=== PATIENT | male | born 1970 | race African-American/Black ===

== ENCOUNTER 2018-01-12 03:51 | Inpatient (IN) | payer SELFPAY ==
[~2018-01-12] VITALS: Ht 182.9 cm; Wt 61.4 kg
[~2018-01-12 03:51] MED LIST: ATRIPLA
[2018-01-12] MEDS ORDERED: FLUORESCEIN SODIUM 1MG/STRIP OP ONE (05:15)
[2018-01-12] MEDS ORDERED: TETRACAINE 0.5% OPHTH DROPS 4ML OP ONE (05:15)
[2018-01-12] MEDS ORDERED: SODIUM CHLORIDE 0.9% 1,000 ML IV ONE (05:50)
[2018-01-12] MEDS ORDERED: ACYCLOVIR INJ 750 MG in DEXT 5% WATER 100 ML IV SCH (06:00)
[2018-01-12] MEDS ORDERED: PIPERACILLIN/TAZ 3.375G PREMIX 50 ML IV ONE (06:00)
[2018-01-12] MEDS ORDERED: VANCOMYCIN 1 G PREMIX 200 ML IV ONE (06:00)
[2018-01-12] MEDS ORDERED: NYSTATIN 100,000 UNITS/ML 5ML UDC SSW ONE (06:15)
[2018-01-12 06:16] LABS: HEMATOCRIT. 38.7 % (42.0-52.0); MEAN CORPUSCULAR HEMOGLOBIN 30.5 pg (28.0-32.0); MEAN CORPUSCULAR VOLUME 90.6 fL (80.0-94.0); PLATELET 230 x1000/uL (130-400); RED BLOOD CELL COUNT 4.27 mill/uL (4.7-6.1); RED CELL DISTRIBUTION WIDTH 14.2 % (11.6-14.6)
[2018-01-12 06:19] LABS: CHLORIDE 106 mEq/L (98-107)
[2018-01-12 06:21] LABS: INR 1.1; PROTHROMBIN TIME 11.8 sec (9.4-11.6)
[2018-01-12 06:48] LABS: PLATELET ESTIMATE NORMAL
[2018-01-12] MEDS ORDERED: KETOROLAC 30MG/ML VIAL IV STA (07:39)
[2018-01-12] MEDS ORDERED: IPRATROPIUM/ALBUTEROL 0.5-3(2.5)MG/3ML NEB INH PRN (07:45)
[2018-01-12] MEDS ORDERED: KETOROLAC 15MG/ML VIAL IV PRN (07:45)
[2018-01-12] MEDS ORDERED: MAGNESIUM/ALUMINUM HYDROXIDE/SIMETHICONE 30ML UDC PO PRN (07:45)
[2018-01-12] MEDS ORDERED: ONDANSETRON HCL 4MG/2ML VIAL IV PRN (07:45)
[2018-01-12] MEDS ORDERED: NA PHOS,M-B/NA PHOS,DI-BA ENEMA 118ML PR PRN (07:45)
[2018-01-12] MEDS ORDERED: ACETAMINOPHEN 325MG TABLET PO PRN (07:45)
[2018-01-12] MEDS ORDERED: DIPHENHYDRAMINE 50MG/ML VIAL IV PRN (07:45)
[2018-01-12] MEDS ORDERED: GUAIFENESIN 200MG/10ML SUGAR FREE UDC PO PRN (07:45)
[2018-01-12] MEDS ORDERED: LORAZEPAM 0.5MG TABLET PO PRN (07:45)
[2018-01-12] MEDS ORDERED: DOCUSATE SODIUM 100MG CAPSULE PO PRN (07:45)
[2018-01-12] MEDS ORDERED: CLONIDINE 0.1MG TABLET PO PRN (07:45)
[2018-01-12] MEDS ORDERED: HYDROCODONE/APAP 7.5/325MG 1 TAB TABLET PO ONE (09:15)
[2018-01-12 09:28] VITALS: BP 121/62
[2018-01-12 09:38] LABS: CLARITY URINE CLEAR (CLEAR); COLOR URINE YELLOW (YELLOW); KETONES URINE TRACE (NEGATIVE); LEUKOCYTE ESTERASE URINE 1+ (NEGATIVE); NITRITE URINE NEGATIVE (NEGATIVE); OCCULT BLOOD URINE NEGATIVE (NEGATIVE); PROTEIN URINE NEGATIVE (NEGATIVE); SPECIFIC GRAVITY URINE 1.025 (1.005-1.030); UROBILINOGEN URINE 0.2 E.U./dL (0.2-1.0)
[2018-01-12 09:49] LABS: *AMPHETAMINES SCREEN URINE NEGATIVE (NEGATIVE); *BARBITURATES SCREEN URINE NEGATIVE (NEGATIVE); *BENZODIAZEPINES SCREEN URINE NEGATIVE (NEGATIVE); *COCAINE SCREEN URINE NEGATIVE (NEGATIVE); CANNABINOID URINE SCREEN PRESUMTIVE POSITIVE (NEGATIVE); METHADONE URINE SCREEN NEGATIVE (NEGATIVE); OPIATES URINE SCREEN NEGATIVE (NEGATIVE); PHENCYCLIDINE URINE SCREEN NEGATIVE (NEGATIVE)
[2018-01-12] MEDS ORDERED: FAMOTIDINE 20MG/2ML VIAL IV SCH (10:30)
[2018-01-12] MEDS ORDERED: SULFAMETHOXAZOLE/TRIMETHOPRIM 800/160MG TABLET PO SCH (11:00)
[2018-01-12] MEDS ORDERED: ENOXAPARIN 40MG/0.4ML SYR SUBCUT SCH (11:00)
[2018-01-12] MEDS ORDERED: LEVOFLOXACIN 500MG PREMIX 100 ML IV SCH (11:00)
[2018-01-12 11:49] LABS: HEPATITIS B SURFACE ANTIGEN NEGATIVE
[2018-01-12 12:17] LABS: HEPATITIS B CORE AB IGM NEGATIVE
[2018-01-12 12:18] LABS: HEPATITIS A AB IGM NEGATIVE (NEGATIVE)
[2018-01-12] MEDS ORDERED: CEFAZOLIN 1000MG PREMIX 50 ML IV SCH (14:00)
[2018-01-12] MEDS ORDERED: ZOLPIDEM TARTRATE 5MG TABLET PO PRN (21:00)
== END 2018-01-12 11:35 | disposition home or self-care (01) | DRG 113 ==
LOC: ER 03:51 → 5WST 06:25 → ENRESERV 06:50
PROVIDERS: ADMIT Internal Medicine; ATTEND Internal Medicine
DX: J02.9 Acute pharyngitis, unspecified (principal); F17.210 Nicotine dependence, cigarettes, uncomplicated; F12.90 Cannabis use, unspecified, uncomplicated; Z88.8 Allergy status to other drugs, medicaments and biological substances; Z79.899 Other long term (current) drug therapy; Z72.89 Other problems related to lifestyle
CPT/HCPCS: 36415; 71045; 80053; 80305; 81003; 83036; 83605; 85025; 85610; 86703; 86705; 86709; 86803; 87040; 87086; 87340; 93005; 93970; J0133; J1885; J1956; J2543; J3370; J3490; J7030; J7060

== ENCOUNTER 2024-12-04 22:05 | Inpatient (IN) | payer MEDICAID, OTHER ==
[~2024-12-04] VITALS: Ht 182.9 cm; Wt 78.7 kg
[2024-12-04] MEDS: SODIUM CHLORIDE 0.9% 1,000 ML IV ONE (23:14)
[2024-12-04] MEDS: ACETAMINOPHEN 1000MG/100ML 100 ML IV ONE (23:14)
[2024-12-04 23:15] LABS: HEMATOCRIT. 40.6 % (42.0-52.0); HEMOGLOBIN. 13.6 g/dL (14.0-18.0); MEAN CORPUSCULAR HEMOGLOBIN 31.2 pg (28.0-32.0); MEAN CORPUSCULAR HGB CONC 33.5 g/dL (31.0-37.0); MEAN PLATELET VOLUME 7.3 fl (7.4-10.4); PLATELET 207 x1000/uL (130-400); RED BLOOD CELL COUNT 4.37 mill/uL (4.7-6.1); RED CELL DISTRIBUTION WIDTH 14.3 % (11.6-14.6); WHITE BLOOD COUNT 13.6 x1000/uL (4.5-11.0)
[2024-12-04 23:16] LABS: DIFFERENTIAL COMMENT 1
[2024-12-04 23:19] LABS: CHLORIDE 101 mEq/L (98-107); SODIUM 136 mEq/L (136-145)
[2024-12-04 23:20] LABS: CALCIUM 9.7 mg/dL (8.7-10.4); CARBON DIOXIDE 22 mEq/L (21-32)
[2024-12-04 23:25] LABS: CREATININE 1.4 mg/dL (0.6-1.3); GLUCOSE 135 mg/dL (70-105); UREA NITROGEN BLOOD 14 mg/dL (9-23)
[2024-12-05 00:22] LABS: PLATELET ESTIMATE NORMAL
[2024-12-05] MEDS ORDERED: SULFAMETHOXAZOLE/TRIMETHOPRIM 800/160MG TABLET PO ONE (00:30)
[2024-12-05] MEDS ORDERED: LEVOFLOXACIN 750MG PREMIX 150 ML IV NR (00:30)
[2024-12-05] MEDS: SODIUM CHLORIDE 0.9% (SEPSIS BOLUS) IV ONE (02:05)
[2024-12-05] MEDS: METHYLPREDNISOLONE SOD SUCC 125MG/2ML (ACT-O-VIAL) IV ONE (02:05)
[2024-12-05] MEDS: PREDNISONE 20MG TABLET PO ONE (02:05)
[2024-12-05] MEDS: POTASSIUM CHLORIDE 20MEQ/PACKET PO NR (02:05)
[2024-12-05] MEDS: MAGNESIUM 2 G PREMIX 50 ML IV ONE (02:47)
[2024-12-05] MEDS: LEVOFLOXACIN 250MG TABLET PO NR (02:56)
[2024-12-05 03:13] LABS: LACTIC ACID 4.3 mmol/L (0.4-2.0)
[2024-12-05] MEDS: IPRATROPIUM/ALBUTEROL 0.5-3(2.5)MG/3ML NEB HHN ONE (03:20)
[2024-12-05] MEDS: IPRATROPIUM/ALBUTEROL 0.5-3(2.5)MG/3ML NEB HHN NR (03:20)
[2024-12-05 03:23] VITALS: RESP 21
[2024-12-05 08:36] VITALS: RESP 24
[2024-12-05] MEDS: ALBUTEROL (0.083%) 2.5MG/3ML NEB HHN ONE (08:36)
[2024-12-05] MEDS: ALBUTEROL (0.083%) 2.5MG/3ML NEB ONE (08:36)
[2024-12-05] MEDS: METHYLPREDNISOLONE SOD SUCC 125MG/2ML (ACT-O-VIAL) IV NR (08:44)
[2024-12-05] MEDS: PREDNISONE 20MG TABLET PO NR (08:45)
[2024-12-05] MEDS: ACETAMINOPHEN 325MG TABLET PO PRN (11:07)
[2024-12-05 12:29] VITALS: RESP 26
[2024-12-05] MEDS: IPRATROPIUM/ALBUTEROL 0.5-3(2.5)MG/3ML NEB HHN SCH (12:29)
[2024-12-05] MEDS ORDERED: CLONIDINE 0.1MG TABLET PO PRN (12:30)
[2024-12-05] MEDS ORDERED: ONDANSETRON HCL 4MG/2ML INJ IV PRN (12:30)
[2024-12-05] MEDS ORDERED: DOCUSATE SODIUM 100MG CAPSULE PO PRN (12:30)
[2024-12-05] MEDS: GUAIFENESIN-DM 200MG-20MG/10ML UDC PO PRN (15:59)
[2024-12-05] MEDS: METHYLPREDNISOLONE SOD SUCC 40MG/ML (ACT-O-VIAL) IV SCH (19:00)
[2024-12-05 21:03] VITALS: PULSE 72; RESP 18; O2SAT 100
[2024-12-06] VITALS (9 sets, daily range): BP systolic 118–151; BP diastolic 88–106; PULSE 103–132; RESP 14–20; TEMP 36.33624–36.72516; O2SAT 93–97
[2024-12-06 05:31] LABS: HEMATOCRIT. 36.5 % (42.0-52.0); HEMOGLOBIN. 12.8 g/dL (14.0-18.0); MEAN CORPUSCULAR HEMOGLOBIN 32.4 pg (28.0-32.0); MEAN CORPUSCULAR HGB CONC 35.2 g/dL (31.0-37.0); MEAN CORPUSCULAR VOLUME 92.1 fL (80.0-94.0); MEAN PLATELET VOLUME 7.5 fl (7.4-10.4); PLATELET 206 x1000/uL (130-400); RED BLOOD CELL COUNT 3.97 mill/uL (4.7-6.1); WHITE BLOOD COUNT 14.2 x1000/uL (4.5-11.0)
[2024-12-06 05:59] LABS: CHLORIDE 102 mEq/L (98-107); POTASSIUM 4.7 mEq/L (3.5-5.1); SODIUM 138 mEq/L (136-145)
[2024-12-06 06:00] LABS: CALCIUM 9.7 mg/dL (8.7-10.4); CARBON DIOXIDE 30 mEq/L (21-32)
[2024-12-06 06:05] LABS: CREATININE 1.1 mg/dL (0.6-1.3); GLUCOSE 118 mg/dL (70-105); UREA NITROGEN BLOOD 17 mg/dL (9-23)
[2024-12-06 06:07] LABS: ALANINE AMINOTRANSFERASE 31 IU/L (10-49); ALBUMIN 4.2 g/dL (3.2-4.8); ASPARTATE AMINOTRANSFERASE 130 IU/L (<34); BILIRUBIN TOTAL 0.5 mg/dL (0.1-1.0); PROTEIN TOTAL 6.9 g/dL (6.0-8.3)
[2024-12-06 06:22] LABS: DIFFERENTIAL COMMENT 1
[2024-12-06 08:25] LABS: PLATELET ESTIMATE NORMAL
[2024-12-06] MEDS: BENZONATATE 100MG CAPSULE PO PRN (21:26)
[2024-12-07] VITALS (9 sets, daily range): BP systolic 106–135; BP diastolic 67–93; PULSE 90–119; RESP 16–20; TEMP 36.3918–36.61404; O2SAT 97–100
[2024-12-07 09:13] LABS: HEMATOCRIT. 39.8 % (42.0-52.0); HEMOGLOBIN. 13.5 g/dL (14.0-18.0); MEAN CORPUSCULAR HEMOGLOBIN 31.5 pg (28.0-32.0); MEAN CORPUSCULAR VOLUME 92.5 fL (80.0-94.0); MEAN PLATELET VOLUME 8.1 fl (7.4-10.4); PLATELET 241 x1000/uL (130-400); WHITE BLOOD COUNT 9.7 x1000/uL (4.5-11.0)
[2024-12-07 09:18] LABS: DIFFERENTIAL COMMENT 1
[2024-12-07 09:50] LABS: CHLORIDE 100 mEq/L (98-107); POTASSIUM 4.2 mEq/L (3.5-5.1); SODIUM 138 mEq/L (136-145)
[2024-12-07 09:51] LABS: CALCIUM 9.6 mg/dL (8.7-10.4); CARBON DIOXIDE 29 mEq/L (21-32)
[2024-12-07 09:56] LABS: GLUCOSE 117 mg/dL (70-105); UREA NITROGEN BLOOD 20 mg/dL (9-23)
[2024-12-07 09:57] LABS: ALANINE AMINOTRANSFERASE 36 IU/L (10-49); ASPARTATE AMINOTRANSFERASE 120 IU/L (<34)
[2024-12-07 09:58] LABS: ALBUMIN 4.3 g/dL (3.2-4.8); BILIRUBIN TOTAL 0.5 mg/dL (0.1-1.0); PROTEIN TOTAL 6.7 g/dL (6.0-8.3)
[2024-12-07] MEDS ORDERED: FAMO20TA8 MT (12:30)
[2024-12-07] MEDS ORDERED: P20 MT (12:30)
[2024-12-07] MEDS ORDERED: FLUT1DIS3 INH (12:30)
[2024-12-07] MEDS ORDERED: ALBU18HF2 IH (12:30)
[2024-12-07 18:56] LABS: PLATELET ESTIMATE NORMAL
== END 2024-12-07 17:15 | disposition home or self-care (01) | DRG 133 ==
LOC: ER 22:05 → 7EST 12-05 02:03 → EDBEDREQ 12-05 02:36 → EDBEDREQTM 12-05 02:36 → EDBEDREQSVC 12-05 03:03 → 7EST 12-06 11:43
PROVIDERS: ADMIT Internal Medicine; ATTEND Internal Medicine
PROC: 5A09357 Assistance with Respiratory Ventilation, Less than 24 Consecutive Hours, Continuous Positive Airway Pressure (ICD-10-PCS; principal; 2024-12-05)
DX: J96.01 Acute respiratory failure with hypoxia (principal); N17.9 Acute kidney failure, unspecified; J44.1 Chronic obstructive pulmonary disease with (acute) exacerbation; E87.20 Acidosis, unspecified; J45.41 Moderate persistent asthma with (acute) exacerbation; Z20.822 Contact with and (suspected) exposure to COVID-19; D64.9 Anemia, unspecified; E87.6 Hypokalemia; F17.210 Nicotine dependence, cigarettes, uncomplicated; R74.01 Elevation of levels of liver transaminase levels; R00.0 Tachycardia, unspecified; Z79.51 Long term (current) use of inhaled steroids; Z21 Asymptomatic human immunodeficiency virus [HIV] infection status
CPT/HCPCS: 36415; 71045; 80048; 80053; 85025; 87426; 87804; 94070; 94640; 99291; J2919; J2920; J3475; J7030; J7512; J0131